=== PATIENT | male | born 1950 | race Caucasian/White ===

== ENCOUNTER → 2016-12-20 | Outpatient (CLI) | payer OTHER, MEDICARE ==
--- NOTE | 2016-12-21 02:01 | REP ---
Clinical: History of pneumoconiosis . Comparison: 11/30/2015 . Technique: PA and lateral. Findings: The mediastinum and cardiac silhouette are normal. The lung bowles are clear and without acute consolidation, effusion, or pneumothorax. Calcified pleural plaque along the right diaphragmatic surface and possible small calcified pleural plaque along the left diaphragmatic surface noted. The skeletal structures are intact and normal. Impression: Chronic changes. No acute cardiopulmonary process. Signed by Tito Ballard MD 12/21/2016 01:53 A
== END ==
LOC: M RAD 10:42
PROVIDERS: ATTEND Internal Medicine Pulmonary Disease
DX: J62.0 Pneumoconiosis due to talc dust (principal)

== ENCOUNTER → 2018-01-02 | Outpatient (CLI) | payer OTHER, MEDICARE | LOC: M RAD 10:55 | DX: J62.0 Pneumoconiosis due to talc dust (principal) ==

== ENCOUNTER → 2019-01-15 | Outpatient (CLI) | payer OTHER, MEDICARE ==
--- NOTE | 2019-01-16 11:57 | REP ---
Clinical: Pneumoconiosis. Technique: PA and lateral. Comparison: 01/02/2018. Findings: Mediastinum and cardiac silhouette are normal. Lung bowles demonstrate chronic stable changes including partially calcified pleural plaques along the diaphragmatic surfaces (right greater than left). Small granuloma in the right mid lung zone are also identified and remains stable. No acute consolidation, effusion, or pneumothorax. Surgical clips in the left upper quadrant. Impression: Chronic stable changes. No acute cardiopulmonary process appreciated. Electronically Signed by Tito Ballard MD 01/16/2019 02:27 A
== END ==
LOC: M RAD 12:01
PROVIDERS: ATTEND Internal Medicine Pulmonary Disease
DX: J62.0 Pneumoconiosis due to talc dust (principal)

== ENCOUNTER → 2020-02-18 | Outpatient (CLI) | payer OTHER ==
--- NOTE | 2020-02-26 09:02 | REP ---
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 COMPARISON: 01/15/19 FINDINGS: 2-views of the chest are performed. There is no change since the prior examination. No acute infiltrate is seen. There are again calcified pleural plaques along both diaphragms. These appear similar to the prior study. The heart is normal in size. Mediastinal silhouette is unchanged. There is mild calcification of the thoracic aorta. Metallic clips are seen in the left upper quadrant of the abdomen. There are mild degenerative changes of the spine. IMPRESSION: Stable examination. Calcified pleural plaques along both hemidiaphragms. No new parenchymal opacities. MTDD
== END ==
LOC: M RAD 10:56
PROVIDERS: ATTEND Internal Medicine Pulmonary Disease
DX: J62.0 Pneumoconiosis due to talc dust (principal)

== ENCOUNTER → 2021-02-10 | Outpatient (CLI) | payer OTHER ==
--- NOTE | 2021-02-10 14:00 | REP ---
INDICATION: PNEUMOCONIOSIS DUE TO TALC DUST COMPARISON: 01/15/2019. TECHNIQUE: PA/Lateral FINDINGS: Lungs: Calcified pleural plaques are again seen unchanged, right greater than left. There is no superimposed acute parenchymal opacity bilaterally. No pleural effusion is seen. Heart: Normal in size. Mediastinum: Mediastinal silhouette unremarkable. Bones and soft tissues: There are mild degenerative changes of the spine. Metallic clips are seen in the left upper quadrant of the abdomen. IMPRESSION: No acute pulmonary disease. Stable chronic findings as discussed above. <Electronically signed by Albino Lyons > 02/10/21 [id number]
== END ==
LOC: M RAD 13:40
PROVIDERS: ATTEND Internal Medicine Pulmonary Disease
DX: J62.0 Pneumoconiosis due to talc dust (principal)

== ENCOUNTER → 2023-11-06 | Outpatient (CLI) | payer OTHER, MEDICARE | LOC: M RAD 10:06 | PROVIDERS: ATTEND Internal Medicine Pulmonary Disease | DX: J62.0 Pneumoconiosis due to talc dust (principal) ==

== ENCOUNTER → 2024-08-09 | Outpatient (CLI) | payer OTHER, MEDICARE | LOC: M RAD 10:58 | PROVIDERS: ATTEND Internal Medicine Pulmonary Disease | DX: J62.0 Pneumoconiosis due to talc dust (principal) ==